=== PATIENT | male | born 1945 | race Caucasian/White ===

== ENCOUNTER 2016-07-15 07:32 | Observation (INO) ==
[2016-07-15] MEDS ORDERED: Ringers Solution, Lactated 1,000 ML IVC SCH ×2 (07:45→08:45)
[2016-07-15] MEDS ORDERED: Ringers Solution, Lactated 500 ML IVC SCH (08:15)
--- NOTE | 2016-07-15 08:47 | Anesthesia Evaluation PreOp ---
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 History: CVA (Right sided deficits) Other Medical History: Renal (Renal mass) Anesthesia History: No Prior Anesthetic Complications, Past Anesthesia (Hernia) Alcohol Use: none Drug use: none Medications and Allergies Allergies No Known Allergies Allergy (Unverified 07/10/16 14:07) - Meds/Allergy Pre-op Review Medications Reviewed: Yes Allergies Reviewed: Yes Beta Blockers on Current Med List: Yes If Beta Blockers taken, Date/Time (Last Dose taken): 21:00 07/14/2016 Anesthesia Results - Labs Laboratory Tests 07/10/16 07/10/16 07/10/16 14:07 14:07 14:07 WBC 6.8 Hgb 12.5 L Hct 39.3 Plt Count 229 INR 1.1 Sodium 141 Potassium 4.4 Chloride 106 Carbon Dioxide 25 BUN 18 Creatinine 0.91 - Imaging EKG: image reviewed (SR) Anesthesia Exam O2 Sat Height 1.88 m Height 1.88 m Height 1.88 m Weight 83.915 kg Weight 83.915 kg Weight 83.915 kg O2 Sat by Pulse Oximetry 99 Vital Signs Temp Pulse Resp BP Pulse Ox 98.6 F 75 18 121/65 99 07/15/16 08:07 07/15/16 08:07 07/15/16 08:07 07/15/16 08:07 07/15/16 08:07 Height: 6'2'' Weight: 185# NPO (# of Hours): > 8 hrs Pain Scale: 0 Pain Scale Used: Numeric (1 - 10) - HEENT Pupil (Motor): Pupils equal, EOMI Mallampati: II Teeth: Edentulous Oral Opening: Greater than 3 - TAPE RECORDER MECHANIC LOC: Oriented TAPE RECORDER MECHANIC Motor: Normal RUE, Normal LUE, Normal RLE, Normal LLE, Normal Face TAPE RECORDER MECHANIC Sensory: Normal: RUE, LUE, RLE, LLE, Face - Cardiac Rhythm: Regular Murmur: None JVD: No Carotid Bruit: No - Pulmonary Breath Sounds: bilateral Clear Respiratory Effort: Symmetrical Anesthesia Assess/Plan ASA Score: 3 Modified Bingham Scale for Level of Consciousness: Cooperative, oriented, and tranquil Anesthetic Plan: General Autologous Blood: Yes Monitoring Plan: Standard Monitors Recovery Plan: PACU
[2016-07-15] MEDS ORDERED: Heparin 1,000 UNITS/500 mL NS 500 ML ONE (09:50)
[2016-07-15] MEDS ORDERED: 0.9 % Sodium Chloride 1,000 ML ONE (10:00)
[2016-07-15] MEDS ORDERED: 0.9 % Sodium Chloride 500 ML ONE (10:07)
--- NOTE | 2016-07-15 11:49 | History & Physical Report ---
Date of Encounter: 07/15/16 Time of Encounter: 09:00 24 Hour HP Update - Instructions Instructions: If the History and Physical is less than 30 days old and was completed prior to A.M. admission and or procedure and has NOT been updated on calendar day of procedure please complete this update prior to performing procedure. - Update Patient reports changes in Medical Condition: No Changes in assessment/condition: No Changes in Medication: No Preop tests/diagnostics Reviewed: Yes Pre-Op MRSA Screen: Negative Surgery Remains Indicated: Yes Consent for Planned Operative Procedure(s) Verified: Yes - Pre-Operative Checklist Preoperative Checklist Indicated: Yes Prophylactic Antibiotic Ordered: Yes Is VTE Prophylaxis Indicated?: NO
--- NOTE | 2016-07-15 11:52 | IR Procedure Note ---
Date of procedure: 07/15/16 Consent Obtained: Written consent Timeout: Correct patient and procedure verified, Correct site verified, Time out performed, Skin prep completed Indications: left renal tumor Procedure Performed: cryoablation, temporary chest tube, hydrodissection Site/Technique: left kidney Results/Findings: adequate cryoablation Estimated blood loss (cc): 2 Complications: other Post Procedure Treatment Plan: Admited for observation. Patient had small pneumothorax treated with tube
[2016-07-15] MEDS ORDERED: *HR* Labetalol 100 MG/20 ML MDV IVP PRN (12:04)
[2016-07-15] MEDS ORDERED: Ondansetron 4 MG/2 ML VIAL IVP PRN ×2 (12:04→13:58)
[2016-07-15] MEDS ORDERED: *HR* HYDROmorphone (PF) 1 MG/ML SYRINGE IVP PRN (12:04)
--- NOTE | 2016-07-15 13:12 | Anesthesia Evaluation Post Op ---
Date of Encounter: 07/15/16 Time of Encounter: 12:55 - Vital Signs Vital Signs: Vital Signs/O2 Sat/Glucose, Most Current Temp Pulse Resp BP Pulse Ox 07/15/16 12:48 97.3 F L 68 16 152/76 96 07/15/16 12:30 97.1 F L 64 16 137/75 99 07/15/16 12:20 62 16 129/74 100 07/15/16 12:10 68 16 124/61 100 07/15/16 12:00 96.8 F L 66 16 140/74 100 07/15/16 11:38 73 13 98/55 98 07/15/16 11:25 57 14 75/40 99 07/15/16 11:10 52 13 102/45 99 07/15/16 10:53 83 13 107/54 98 07/15/16 10:43 70 86/47 98 - Lungs Lungs: Clear Ascult./Percussion - Airway Airway: Non-obstructed - Cardiovascular Regular Rate - Mental Status Mental Status: Alert & Oriented, Answers Appropriately - Pain Pain Scale: 0 - Nausea Vomiting Nausea Vomiting: Not Present - Hydration Hydration: Ice chips - Discharge PostOp Status: Transfer Patient to floor
[2016-07-15] MEDS ORDERED: *HR* Morphine 2 MG/ML SYRINGE IVP PRN (13:58)
[2016-07-15] MEDS ORDERED: Naloxone 0.4 MG/ML INJ IVP PRN (13:58)
[2016-07-15] MEDS ORDERED: *HR* HYDROcodone/Acet 5/325 mg TABLET PO PRN (13:58)
--- NOTE | 2016-07-15 14:21 | Internal Med History&Physical ---
<Neelam Robbins M - Last Filed: 07/15/16 19:58> Date of Encounter: 07/15/16 Time of Encounter: 14:14 Assessment and Plan (1) Renal mass, left Current visit: Yes Status: Acute MRI on 06/17/16 showed 3.4 x 3.1 x 2.9cm enhancing lesion consistent with Renal Cell Carcinoma. Patient opted for cryoablation of tumor. Plavix has been held for last 1 week. Cryoablation of tumor performed in interventional radiology this morning. Patient tolerated procedure well and is reporting minimal discomfort. Follow up with Dr. Jean Baptiste as an outpatient. Restart Plavix tomorrow. (2) Post procedure discomfort Current visit: Yes Status: Acute Patient reporting aching pain in left flank after procedure. [place] and Morphine PRN for pain zofran PRN for nausea Clear liquid diet, advance as tolerated. (3) Pneumothorax Current visit: Yes Status: Resolved IR reported small pneumothorax post-procedure, treated with temporary chest tube. Patient with occlusive dressing in place. Lungs are clear bilaterally to auscultation. Patient satting 96-100% on 2L NC and denies any shortness of breath. CXR this afternoon showed: No pneumothorax status post left renal mass ablation. Qualifiers: Pneumothorax type: postprocedural Qualified Code(s): J95.811 - Postprocedural pneumothorax; J95.81 - Postprocedural pneumothorax and air leak (4) Hypertension Current visit: Yes Status: Acute Continue home dose of Coreg and lisinipril. Qualifiers: Hypertension type: essential hypertension Qualified Code(s): I10 - Essential (primary) hypertension (5) DVT prophylaxis Current visit: Yes Status: Acute Ambulate with assistance SCDs Internal Medicine - H&P: HPI Chief complaint: Kidney mass Plans for Post Hospital Care: Transfer Manager Metrology Care History of present illness: Mr. Parnell is a 71 year old male with hypertension, hyperlipidemia, coronary artery disease, history of CVA with right-sided residual, left renal mass who is scheduled for a cryoablation of his left renal mass today in interventional radiology and is being admitted for postprocedure observation. MRI from June 17 showed a 3.4 x 3.1 x 2.9 cm enhancing lesion in the left kidney consistent with renal cell carcinoma. In consultation with Dr. Jean Baptiste as an outpatient, options were discussed and patient opted for cryoablation of the mass. Preop labs were taken on July 10 with no noted abnormalities. Patient was instructed to hold his Plavix 1 week prior to procedure. Patient had procedure this morning and I are, small pneumothorax was noted and was treated with a temporary chest tube. Chest x-ray this afternoon in follow-up showed no pneumothorax. Patient reports he is feeling cold after the procedure, but denies any headache, nausea, vomiting, chest pain, palpitations, shortness of breath. He reports some mild ache in his left flank and some mild lightheadedness. On exam, patient is alert and oriented, in no acute distress heart has regular rate and rhythm lungs are clear bilaterally to auscultation. Occlusive dressing on left flank is clean and dry with no noted drainage. Past Med Surg Social Fam HX - Past Medical History Medical history: CVA, hyperlipidemia, hypertension Psychiatric history: no psych history - Past Surgical History Surgical History: herniorrhaphy - Social History Smoking Status: Current every day smoker (50 pack year history) Packs per day: 0.5 Smokeless Tobacco Status: No Alcohol use: none Drug use: none - Family History Mother Living Status: Age at : 90 Father Living Status: Age at : 69 Hx Family Cardiac Disorders: Yes Internal Medicine - H&P: Meds Allergies No Known Allergies Allergy (Unverified 07/10/16 14:07) All Systems PM: A 10-system review of systems was performed and is negative for pertinent findings except as documented above in the HPI. - Constitutional Constitutional: no chills, no fever(s), no night sweats - EENT Eyes: no change in vision, no discharge, no pain, no photophobia Ears: no ear discharge, no ear pain, no tinnitus Nose, mouth and throat: no dysphagia, no nasal discharge, no neck pain, no sore throat - Cardiovascular Cardiovascular ROS IM: no chest pain, no diaphoresis, no dyspnea, no lightheadedness, no palpitations, no syncope - Respiratory Respiratory: no cough, no dyspnea, no wheezing, no excessive phlegm production - Gastrointestinal Gastrointestinal: no abdominal pain, no diarrhea, no hematemesis, no hematochezia, no melena, no nausea, no vomiting - Musculoskeletal Musculoskeletal ROS IM: back pain (Left flank ache), no numbness, no tingling - Integumentary Integumentary IM: no rash, no unusual bruising - Neurological Neurological ROS: focal weakness (right sided weakness, chronic after CVA in 2014), no confusion, no convulsions, no numbness, no tingling, no tremor(s) - Hematologic/Lymphatic Hematologic/Lymphatic: no easy bruising - Constitutional Vitals: Temp Pulse Resp BP Pulse Ox 97.3 F L 68 16 152/76 96 07/15/16 12:48 07/15/16 12:48 07/15/16 12:48 07/15/16 12:48 07/15/16 12:48 General appearance: Present: A&O X 3, no acute distress - Head Head exam: Present: atraumatic, normocephalic - Eye Eye exam: Present: PERRL, conjuntiva pink, sclera anicteric Pupils: Present: PERRL - Neck Neck exam general surgery: Present: supple, trachea midline. Absent: lymphadenopathy - Respiratory Respiratory exam: Present: CTAB. Absent: accessory muscle use, rales, rhonchi, wheezes - Cardiovascular Cardiovascular exam: Present: RRR, +S1, +S2. Absent: diastolic murmur, gallop, rubs, systolic murmur - GI/Abdominal GI/Abdominal exam: Present: normal bowel sounds, soft, no peritoneal signs. Absent: distended, tenderness - Extremities Exam Extremities exam: Present: warm, radial pulses palpable and symetrical. Absent : calf tenderness, cyanotic, pedal edema - Incison Incision: Present: clean and dry, intact Comments: Left flank with 2 clean, dry gauze pads covered with translucent occlusive dressing. - Neurological Exam Neurological exam: Present: CN II-XII intact, oriented X3, facial droop (Right sided facial droop noted, patient reports this is chronic since CVA in 2014). Absent: strengths equal and symetr throughout (right side slightly weaker than left, patient reports this is chronic since CVA in 2014), speech deficit - Skin Skin exam: Present: dry, intact Internal Med - H&P Results - Labs Labs: Pre-op labs taken 07/10/16: Hgb 12.5 Hct 39.3 WBC 6.8 Plt 229 NA 141 K 4.4 Cl 106 CO2 25 BUN 18 Cr 0.91 PT 11.6 INR 1.1 PTT 31.8 <Ducu,Marco A - Last Filed: 07/16/16 17:59> Internal Medicine - H&P: HPI History of present illness: Mr. Parnell is a 71 year old male All Systems PM: A 10-system review of systems was performed and is negative for pertinent findings except as documented above in the HPI. - Constitutional Vitals: Temp Pulse Resp BP Pulse Ox 97.7 F 78 15 130/56 90 L 07/16/16 15:18 07/16/16 15:18 07/16/16 15:18 07/16/16 15:18 07/16/16 15:18 Internal Med - H&P Results - Labs CBC & Chem 7: 07/16/16 05:55 07/16/16 05:55 Labs: Short CBC 07/16/16 Range/Units 05:55 WBC 10.8 D (4.3-11.1) K/mcL Hgb 12.0 L (12.9-16.9) g/dL Hct 36.4 L (37.5-50.1) % Plt Count 185 (140-400) K/mcL Neutrophils # 7.6 (1.6-8.9) K/mcL BMP 07/16/16 05:55 Sodium 142 Potassium 3.6 Chloride 111 H Carbon Dioxide 22 BUN 12 Creatinine 0.86 Glucose 119 H Calcium 8.6 - Impressions ITS Impressions CT Guided Tissue Ablation 07/15/16 00:00 IMPRESSION: Successful left renal cryoablation. A small pneumothorax was evacuated with a small bore chest tube with adequate resolution. The patient did not need a long-term chest tube. D/ / 07/15/2016 16:09:46 Kelle Frank MD / gahda Interpreting Provider: Kelle Frank MD Chest X-Ray 07/15/16 14:00 IMPRESSION: No pneumothorax status post left renal mass ablation. D/ / 07/15/2016 14:37:08 Dino Stallings MD / Katerine Nur Interpreting Provider: Dino Stallings MD - Attending Attestation I examined this patient and my medical decision-making was reviewed with the Advanced Practice Nurse. I agree with the documented findings, disposition and treatment plan as described except to the extent set forth below. The patient was admitted for observation post renal mass ablation. I have discussed case with the radiologist reported that there was a small left pneumothorax postprocedure. Currently the chest x-ray reveals no pneumothorax. The patient is in no acute distress. Lungs are clear, abdomen is soft. Plan: Admit for observation. Monitor respiratory status. Obtain CBC in the morning.
[2016-07-15] MEDS: Mirtazapine 15 MG TABLET PO SCH (20:39)
[2016-07-16 06:42] LABS: Basophils % 0.2 %; Eosinophils % 0.3 %; Hematocrit 36.4 % (37.5-50.1); Immature Granulocytes % 0.4 % (0-4); Lymphocytes # 1.5 K/mcL (0.6-4.6); Lymphocytes % 14.3 %; Mean Corpuscular Hemoglobin 29.9 pg (28.0-33.3); Mean Corpuscular Volume 90.8 fL (83.0-100.0); Mean Platelet Volume 11.4 fL (9.4-12.4); Monocytes # 1.5 K/mcL (0.0-1.3); Monocytes % 14.2 %; Neutrophils # 7.6 K/mcL (1.6-8.9); Platelet Count 185 K/mcL (140-400); Red Blood Count 4.01 M/mcL (4.19-5.50); Red Cell Distribution Width 14.2 % (11.5-14.5); Segmented Neutrophils % 70.6 %
[2016-07-16 06:59] LABS: BUN/Creatinine Ratio 14 (6-26); Blood Urea Nitrogen 12 mg/dL (8-26); Calcium 8.6 mg/dL (8.6-10.8); Carbon Dioxide 22 mEq/L (19-29); Chloride 111 mEq/L (98-109); Glucose 119 mg/dL (70-99); Osmolality,Calculated 295 (280-300); Potassium 3.6 mEq/L (3.5-4.5); Sodium 142 mEq/L (136-145); eGFR For African Americans > 60 (> 60); eGFR For Non-African Americans > 60 (> 60)
[2016-07-16] MEDS: Lisinopril 20 MG TABLET PO SCH (08:16)
--- NOTE | 2016-07-16 10:19 | Discharge Summary ---
<Jeronimo Villegas - Last Filed: 07/16/16 12:58> Date of Encounter: 07/16/16 Time of Encounter: 10:18 - Discharge Diagnosis (1) Hypertension Priority: Secondary Status: Acute Qualifiers: Hypertension type: essential hypertension Qualified Code(s): I10 - Essential (primary) hypertension (2) Post procedure discomfort Priority: Primary Status: Acute (3) Renal mass, left Priority: Primary Status: Acute (4) Pneumothorax Priority: Primary Status: Resolved Qualifiers: Pneumothorax type: postprocedural Qualified Code(s): J95.811 - Postprocedural pneumothorax; J95.81 - Postprocedural pneumothorax and air leak - Discharge Medications Home Medications: Acetaminophen [Tylenol] 325 mg PO Q6HR PRN 07/16/16 [History] Atorvastatin [Lipitor] 40 mg PO HS 07/16/16 [History] Carvedilol 12.5 mg PO DAILY 07/16/16 [History] Cholecalciferol (D-3) [Vitamin D] 2,000 unit PO DAILY 07/16/16 [History] Clopidogrel [Plavix] 75 mg PO DAILY 07/16/16 [History] Lisinopril [Zestril] 20 mg PO DAILY 07/16/16 [History] Mirtazapine [Remeron] 15 mg PO HS 07/16/16 [History] Allergies/Adverse Reactions: Allergies No Known Allergies Allergy (Unverified 07/10/16 14:07) Procedures/tests Complete & Pending: Procedures Performed prior 72 hours Category Date Time Status CT guided ablation [CT] Routine Cat Scan 07/15/16 Completed Date of admission: 07/16/16 07:41 Primary care physician: Stacie Streeter Consults: 07/15/16 14:22 Consult to Wood Strip Block Floor Installer [CONS] Routine Reason for SW Consult: Patient resides at [facility] and will need to return at discharge. Discharging clinician: Jeronimo Villegas Anticipated date of discharge: 07/16/16 - Patient Status Disposition: Home, Self-Care Condition: Good Functional capacity at discharge: independent ambulation Overall status at discharge: patient is progressing back to baseline - Discharge Instructions Follow Up With: Stacie Streeter [Primary Care Provider] - Additional Instructions: I recommend follow-up with her primary care physician the next 3-5 business days. Recommend taking her home medications as prescribed. If you have recurrence of chest pain, shortness of breath or any other concerning medical symptoms or signs he should be seen and evaluated at the emergency department. - Diet and Activity Activity: increase activity as tolerated Diet: advance to your usual diet Interval History: Mr. Parnell 71-year-old male with history of hypertension, hyperlipidemia, coronary artery disease, history of CVA with right-sided residual effects, left renal mass was admitted on 07/15/2016 after undergoing cryoablation of his left renal mass and developed a small pneumothorax that was treated with a temporary chest tube. Patient is admitted to the general medical floor, chest tube was removed , incision site had occlusive dressing in place. Patient's vitals are stable and his oxygen saturations were between 96 100% on 2 L nasal cannula. Repeat chest x-ray did not demonstrate a pneumothorax. Mr. Parnell remained stable overnight and was continued on his home dose of Coreg and lisinopril for his hypertension. He was seen and evaluated at patient's bedside on the morning of 07/16/2016 and deemed stable for discharge with close follow-up. Patient disposition and medications were discussed with the patient who agreed. He was restarted on his home medications recommended follow-up. Hospital course: Mr. Parnell 71-year-old male with history of hypertension, hyperlipidemia, coronary artery disease, history of CVA with right-sided residual effects, left renal mass was admitted on 07/15/2016 after undergoing cryoablation of his left renal mass and developed a small pneumothorax that was treated with a temporary chest tube. Patient is admitted to the general medical floor, chest tube was removed , incision site had occlusive dressing in place. Patient's vitals are stable and his oxygen saturations were between 96 100% on 2 L nasal cannula. Repeat chest x-ray did not demonstrate a pneumothorax. Mr. Parnell remained stable overnight and was continued on his home dose of Coreg and lisinopril for his hypertension. He was seen and evaluated at patient's bedside on the morning of 07/16/2016 and deemed stable for discharge with close follow-up. Patient disposition and medications were discussed with the patient who agreed. He was restarted on his home medications recommended follow-up. - Time Spent with Patient Total time spent providing and/or coordinating discharge services: - Constitutional Vitals: Temp Pulse Resp BP Pulse Ox 99.9 F H 90 16 126/68 90 L 07/16/16 07:03 07/16/16 07:03 07/16/16 07:03 07/16/16 07:03 07/16/16 08:20 General appearance: Present: A&O X 3, no acute distress - Head Head exam: Present: atraumatic, normocephalic - Eye Eye exam: Present: PERRL, conjuntiva pink, sclera anicteric Pupils: Present: PERRL - Neck Neck exam general surgery: Present: supple, trachea midline. Absent: lymphadenopathy - Respiratory Respiratory exam: Present: CTAB. Absent: accessory muscle use, rales, rhonchi, wheezes - Cardiovascular Cardiovascular exam: Present: RRR, +S1, +S2. Absent: diastolic murmur, gallop, rubs, systolic murmur - GI/Abdominal GI/Abdominal exam: Present: normal bowel sounds, soft, no peritoneal signs. Absent: distended, tenderness - Extremities Exam Extremities exam: Present: warm, radial pulses palpable and symetrical. Absent : calf tenderness, cyanotic, pedal edema - Back Exam Additional comments: incision sites in left medial chest are covered and without drainage or crepitus to palpation. - Neurological Exam Neurological exam: Present: alert, oriented X3, no focal deficits. Absent: pronater drift, facial droop, speech deficit - Psychiatric Psychiatric exam: Present: normal mood - VTE Documentation of Mechanical Device: Intermittent pneumatic compression device <Kory Foster - Last Filed: 07/16/16 15:52> - Discharge Diagnosis (1) Pneumothorax Priority: Primary Status: Resolved Qualifiers: Pneumothorax type: postprocedural Qualified Code(s): J95.811 - Postprocedural pneumothorax; J95.81 - Postprocedural pneumothorax and air leak (2) Renal mass, left Priority: Primary Status: Acute (3) Hypertension Status: Chronic Qualifiers: Hypertension type: essential hypertension Qualified Code(s): I10 - Essential (primary) hypertension (4) Status post cryoablation Priority: Primary Status: Acute Comments: S/P cryoablation of renal mass. (5) Tobacco abuse Priority: Secondary Status: Chronic Procedures/tests Complete & Pending: Procedures Performed prior 72 hours Category Date Time Status CT guided ablation [CT] Routine Cat Scan 03/13/17 Completed IR cryoablation perc renal [IR] Routine IR 07/15/16 09:00 Completed Date of admission: 07/16/16 07:41 Primary care physician: Stacie Streeter Consults: 07/15/16 14:22 Consult to Wood Strip Block Floor Installer [CONS] Routine Reason for SW Consult: Patient resides at [facility] and will need to return at discharge. 07/16/16 13:28 Consult to Occupational Therapy [CONS] Stat Comment: Evaluate, develop and implement POC Consult to Physical Therapy [CONS] Stat Comment: Evaluate, develop and implement POC Hospital course: Mr. Parnell is a 71 year old male - Time Spent with Patient Total time spent providing and/or coordinating discharge services: - Constitutional Vitals: Temp Pulse Resp BP Pulse Ox 97.7 F 78 15 130/56 90 L 07/16/16 15:18 07/16/16 15:18 07/16/16 15:18 07/16/16 15:18 07/16/16 15:18 - Attending Attestation I examined this patient and my medical decision-making was reviewed with the Resident Physician on 07/16/16. I agree with the documented findings, disposition and treatment plan as described except to the extent set forth below. Mr. Parnell was placed in observation yesterday following cryoablation of renal mass. He had developed L PTX and had temporary chest tube. PTX resolved on subsequent CXR. Today he feels well. He denies pain and is "not as cold" as yesterday. Had low grade temp this AM but has resolved. Exam Alert. Comfortable Heart reg Lungs clear Abd soft. Pt currently afebrile with good vitals and is stable for discharge Plan D/C today
[2016-07-16] MEDS ORDERED: *HR* Succinylcholine 200 MG/10 ML VIAL IVP ONE (10:57)
[2016-07-16] MEDS ORDERED: Lidocaine -MPF 2% 5 ML VIAL INFILT ONE (10:57)
[2016-07-16] MEDS ORDERED: *HR* Rocuronium Bromide 50 MG/5 ML VIAL IVC ONE (10:57)
[2016-07-16] MEDS ORDERED: *HR* Propofol 200 MG/20 ML VIAL IVP ONE (10:57)
[2016-07-16] MEDS ORDERED: *HR* Phenylephrine 10 MG/ML VIAL IVC ONE (10:57)
--- NOTE | 2016-07-16 15:54 | Physician Discharge Referral ---
ExtendedCare Referral Info Provider in Charge after Transfer: PCP Institutional Level of Care: Skilled - Diagnosis (1) Pneumothorax Priority: Primary Status: Resolved (2) Renal mass, left Priority: Primary Status: Acute (3) Hypertension Priority: Secondary Status: Chronic (4) Status post cryoablation Priority: Primary Status: Acute (5) Tobacco abuse Priority: Secondary Status: Chronic Expected Duration of Placement: Less than 30 days. Prognosis: Fair Aware of Diagnosis: Patient Aware of Prognosis: Patient - Transfer Medications Home Medications: Acetaminophen [Tylenol] 325 mg PO Q6HR PRN 07/16/16 [History] Atorvastatin [Lipitor] 40 mg PO HS 07/16/16 [History] Carvedilol 12.5 mg PO DAILY 07/16/16 [History] Cholecalciferol (D-3) [Vitamin D] 2,000 unit PO DAILY 07/16/16 [History] Clopidogrel [Plavix] 75 mg PO DAILY 07/16/16 [History] Lisinopril [Zestril] 20 mg PO DAILY 07/16/16 [History] Mirtazapine [Remeron] 15 mg PO HS 07/16/16 [History] Allergies/Adverse Reactions: Allergies No Known Allergies Allergy (Unverified 07/10/16 14:07) - Respiratory Orders Oxygen / L per min (Maintain saturation greater than 90%) Smoking Cessation: Smoking cessation has been advised. For more information, call the [place] Tobacco Quit Line at 4-803-EUCI-NOW. - Ancillary Orders May use pressure relief devices daily prn, May consult with Dentist, Data Warehousing Specialist, Zipper Trimmer Hand PRN - Advance Directives Code Status: Full Code - History and Physical History/Physical reviewed & approved w/add comments: Document up to date - Mobility Orders Ambulate - Rehabiliation Orders Rehab Potential: Fair Rehab Orders: Evaluation for Physical Therapy, Evaluation for Occupational Therapy - Treatments Skin tear care topically daily PRN per policy, May check for fecal impaction rectally daily PRN, Fleet enema rectally every other day PRN cleansing purposes - Diet Orders Cardiac CERTIFICATION: I certify that the transfer of the above named patient to an Extended Care Facility is necessary for the continuing treatment of the diagnosis listed. The above information is true and accurate reflection of patient's current condition. Confidential - Redisclosure prohibited without a patient's written consent.
[2016-07-16] MEDS: Mirtazapine 15 MG TABLET PO SCH (21:28)
[2016-07-17] MEDS ORDERED: Acetaminophen 325 MG TABLET PO ONE (08:04)
[2016-07-17] MEDS: Lisinopril 20 MG TABLET PO SCH (08:46)
[2016-07-17 10:17] LABS: Basophils % 0.3 %; Eosinophils % 0.3 %; Hematocrit 33.6 % (37.5-50.1); Hemoglobin 11.1 g/dL (12.9-16.9); Immature Granulocytes % 0.4 % (0-4); Lymphocytes # 1.7 K/mcL (0.6-4.6); Lymphocytes % 15.1 %; Mean Corpuscular Hemoglobin 29.5 pg (28.0-33.3); Mean Corpuscular Volume 89.4 fL (83.0-100.0); Monocytes % 17.3 %; Neutrophils # 7.5 K/mcL (1.6-8.9); Platelet Count 168 K/mcL (140-400); Red Blood Count 3.76 M/mcL (4.19-5.50); Red Cell Distribution Width 14.4 % (11.5-14.5); Segmented Neutrophils % 66.6 %
[2016-07-17] MEDS ORDERED: *HR* HYDROcodone/Acet 10/325 mg TABLET PO PRN (11:23)
--- NOTE | 2016-07-17 15:58 | Internal Med Progress Note ---
<Jeronimo Villegas - Last Filed: 07/17/16 15:54> Date of Encounter: 07/17/16 Time of Encounter: 09:15 - Assessment and plan (1) Pneumothorax Current Visit: Yes Status: Resolved Assessment and plan: Patient demonstrated pneumothorax after procedure on 07/15/2016. Temporary chest tube was placed with resolution of pneumothorax. Follow-up chest x-ray did not demonstrate any pneumothorax. Chest x-ray from 07/17/2016 was absent for any pneumothorax, pleural effusion or consolidation. There was some atelectasis bibasilar. Follow-up with primary care physician. Qualifiers: Pneumothorax type: postprocedural Qualified Code(s): J95.811 - Postprocedural pneumothorax; J95.81 - Postprocedural pneumothorax and air leak (2) Post procedure discomfort Current Visit: Yes Status: Acute Assessment and plan: Patient demonstrated acute onset left lower chest discomfort after undergoing cryoablation of left renal mass. Resolved after chest tube placement and decompression of pneumothorax. Patient continues to be asymptomatic. (3) Renal mass, left Current Visit: Yes Status: Acute Assessment and plan: Patient underwent scheduled cryo-ablation of left renal mass. Continue follow- up as scheduled. - Subjective Interval history: Mr. Parnell has been seen and evaluated patient bedside this morning. He is resting in bed and denies any discomforts, pains, shortness of breath, chest pains, fevers, chills, diaphoresis, abdominal pains or any other pains. He denies any drainage from his recent incision site. He denies any concerns at this time and is looking forward to going home. - Constitutional Vitals: Temp Pulse Resp BP Pulse Ox 98.3 F 74 16 94/59 90 L 07/17/16 11:32 07/17/16 11:32 07/17/16 11:32 07/17/16 11:32 07/17/16 11:32 General appearance: Present: A&O X 3, no acute distress - Head Head exam: Present: atraumatic, normocephalic - Eye Eye exam: Present: PERRL, conjuntiva pink, sclera anicteric Pupils: Present: PERRL - ENT ENT exam: Present: mucous membranes moist - Neck Neck exam general surgery: Present: supple, trachea midline. Absent: lymphadenopathy - Respiratory Respiratory exam: Present: CTAB. Absent: accessory muscle use, rales, rhonchi, wheezes - Cardiovascular Cardiovascular exam: Present: RRR, +S1, +S2. Absent: diastolic murmur, gallop, rubs, systolic murmur - GI/Abdominal GI/Abdominal exam: Present: normal bowel sounds, soft, no peritoneal signs. Absent: distended, tenderness - Extremities Exam Extremities exam: Present: warm, radial pulses palpable and symetrical. Absent : calf tenderness, cyanotic, pedal edema - Neurological Exam Neurological exam: Present: alert, oriented X3, no focal deficits. Absent: pronater drift, facial droop, speech deficit - Psychiatric Psychiatric exam: Present: flat affect Internal Medicine: Result - Labs CBC & Chem 7: 07/17/16 09:44 07/16/16 05:55 Labs: Short CBC 07/17/16 Range/Units 09:44 WBC 11.3 H (4.3-11.1) K/mcL Hgb 11.1 L (12.9-16.9) g/dL Hct 33.6 L (37.5-50.1) % Plt Count 168 (140-400) K/mcL Neutrophils # 7.5 (1.6-8.9) K/mcL - Impressions Impressions Chest X-Ray 07/17/16 09:18 IMPRESSION: 1. No pneumothorax, significant effusion, or acute consolidation. 2. 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 D/ / 07/17/2016 14:03:08 Clyde Mclaughlin MD / [facility] Interpreting Provider: Clyde Mclaughlin MD - VTE Documentation of Mechanical Device: Intermittent pneumatic compression device Consult Discharge Plan - Plan Additional Instructions: I recommend follow-up with her primary care physician the next 3-5 business days. Recommend taking her home medications as prescribed. If you have recurrence of chest pain, shortness of breath or any other concerning medical symptoms or signs he should be seen and evaluated at the emergency department. Referrals: Stacie Streeter [Primary Care Provider] - <Kory Foster - Last Filed: 07/17/16 19:04> - Assessment and plan (1) Pneumothorax Current Visit: Yes Status: Resolved Qualifiers: Pneumothorax type: postprocedural Qualified Code(s): J95.811 - Postprocedural pneumothorax; J95.81 - Postprocedural pneumothorax and air leak (2) Renal mass, left Current Visit: Yes Status: Acute (3) Hypertension Current Visit: Yes Status: Chronic Qualifiers: Hypertension type: essential hypertension Qualified Code(s): I10 - Essential (primary) hypertension (4) Status post cryoablation Current Visit: Yes Status: Acute (5) Tobacco abuse Current Visit: Yes Status: Chronic - Constitutional Vitals: Temp Pulse Resp BP Pulse Ox 98.4 F 71 16 132/67 89 L 07/17/16 16:29 07/17/16 16:29 07/17/16 16:29 07/17/16 16:29 07/17/16 16:29 Internal Medicine: Result - Labs CBC & Chem 7: 07/17/16 09:44 07/16/16 05:55 Labs: Short CBC 07/17/16 Range/Units 09:44 WBC 11.3 H (4.3-11.1) K/mcL Hgb 11.1 L (12.9-16.9) g/dL Hct 33.6 L (37.5-50.1) % Plt Count 168 (140-400) K/mcL Neutrophils # 7.5 (1.6-8.9) K/mcL - Impressions Impressions Chest X-Ray 07/17/16 09:18 IMPRESSION: 1. No pneumothorax, significant effusion, or acute consolidation. 2. 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 D/ / 07/17/2016 14:03:08 Clyde Mclaughlin MD / [facility] Interpreting Provider: Clyde Mclaughlin MD - Attending Attestation I examined this patient and my medical decision-making was reviewed with the Resident Physician on 07/17/16. I agree with the documented findings, disposition and treatment plan as described except to the extent set forth below. Mr. Parnell is currently in observation for PTX post cryoablation of renal mass. He is doing better but having low grade temp this AM Exam Alert. Comfortable Heart reg No wheeze CXR and labs reviewed I/P 1. PTX - resolved 2. Low grade temp -improved 3. HTN Awaiting precert.
[2016-07-17] MEDS: Mirtazapine 15 MG TABLET PO SCH (20:14)
[2016-07-18] MEDS: Lisinopril 20 MG TABLET PO SCH (08:22)
--- NOTE | 2016-07-18 18:17 | Internal Med Progress Note ---
Date of Encounter: 07/18/16 Time of Encounter: 17:30 - Assessment and plan (1) Pneumothorax Current Visit: Yes Status: Resolved Assessment and plan: Patient demonstrated pneumothorax after procedure on 07/15/2016. Temporary chest tube was placed with resolution of pneumothorax. Follow-up chest x-ray did not demonstrate any pneumothorax. Chest x-ray from 07/17/2016 was absent for any pneumothorax, pleural effusion or consolidation. There was some atelectasis bibasilar. 07/18 - Pt without symptoms at this time. Maintaining oxygenation. Awaiting precert for SNF. Qualifiers: Pneumothorax type: postprocedural Qualified Code(s): J95.811 - Postprocedural pneumothorax; J95.81 - Postprocedural pneumothorax and air leak (2) Renal mass, left Current Visit: Yes Status: Acute Assessment and plan: Patient underwent scheduled cryo-ablation of left renal mass. Continue follow- up as scheduled. (3) Hypertension Current Visit: Yes Status: Chronic Assessment and plan: Continue home meds. BP controlled. Qualifiers: Hypertension type: essential hypertension Qualified Code(s): I10 - Essential (primary) hypertension (4) Status post cryoablation Current Visit: Yes Status: Acute (5) Tobacco abuse Current Visit: Yes Status: Chronic Assessment and plan: Cessation counselling. - Subjective Interval history: Mr. Parnell is currently in observation due to postprocedural pneumothorax. Mr. Parnell feels OK. He has no new complaints. Pain is controlled. He continues to await precert from insurance for discharge back to SNF. - Constitutional Vitals: Temp Pulse Resp BP Pulse Ox 98.4 F 80 15 105/56 90 L 07/18/16 17:00 07/18/16 17:00 07/18/16 17:00 07/18/16 17:00 07/18/16 17:00 General appearance: Present: A&O X 3, answers questions appropriately - Head Head exam: Present: normocephalic - Eye Eye exam: Present: EOMI, conjuntiva pink - ENT ENT exam: Present: mucous membranes dry - Respiratory Respiratory exam: Present: decreased breath sounds, CTAB - Cardiovascular Cardiovascular exam: Present: RRR. Absent: tachycardia - GI/Abdominal GI/Abdominal exam: Present: soft. Absent: mass, tenderness - Neurological Exam Neurological exam: Present: alert, oriented X3, no focal deficits - Psychiatric Psychiatric exam: Present: normal affect, normal mood Internal Medicine: Result - Labs CBC & Chem 7: 07/17/16 09:44 07/16/16 05:55 - VTE Documentation of Mechanical Device: Intermittent pneumatic compression device Consult Discharge Plan - Plan Additional Instructions: I recommend follow-up with her primary care physician the next 3-5 business days. Recommend taking her home medications as prescribed. If you have recurrence of chest pain, shortness of breath or any other concerning medical symptoms or signs he should be seen and evaluated at the emergency department. Referrals: Stacie Streeter [Primary Care Provider] -
[2016-07-18] MEDS: Mirtazapine 15 MG TABLET PO SCH (20:19)
[2016-07-19] MEDS: Acetaminophen 325 MG TABLET PO PRN (07:54)
[2016-07-19] MEDS: Lisinopril 20 MG TABLET PO SCH (07:54)
--- NOTE | 2016-07-19 19:08 | Internal Med Progress Note ---
Date of Encounter: 07/19/16 Time of Encounter: 14:00 - Assessment and plan (1) Pneumothorax Current Visit: Yes Status: Resolved Assessment and plan: Patient demonstrated pneumothorax after procedure on 07/15/2016. Temporary chest tube was placed with resolution of pneumothorax. Follow-up chest x-ray did not demonstrate any pneumothorax. Chest x-ray from 07/17/2016 was absent for any pneumothorax, pleural effusion or consolidation. There was some atelectasis bibasilar. 07/18 - Pt without symptoms at this time. Maintaining oxygenation. 07/19 - no issues. Awaiting precert for SNF. Qualifiers: Pneumothorax type: postprocedural Qualified Code(s): J95.811 - Postprocedural pneumothorax; J95.81 - Postprocedural pneumothorax and air leak (2) Renal mass, left Current Visit: Yes Status: Acute Assessment and plan: Patient underwent scheduled cryo-ablation of left renal mass. Continue follow- up as scheduled. (3) Hypertension Current Visit: Yes Status: Chronic Assessment and plan: Continue home meds. BP controlled. Qualifiers: Hypertension type: essential hypertension Qualified Code(s): I10 - Essential (primary) hypertension (4) Status post cryoablation Current Visit: Yes Status: Acute (5) Tobacco abuse Current Visit: Yes Status: Chronic Assessment and plan: Cessation counselling. - Subjective Interval history: Mr. Parnell is currently in observation due to postprocedural pneumothorax. Mr. Parnell has no new issues. Still awaiting precert for SNF. - Constitutional Vitals: Temp Pulse Resp BP Pulse Ox 98.4 F 70 15 115/65 93 L 07/19/16 15:05 07/19/16 15:05 07/19/16 15:05 07/19/16 15:05 07/19/16 15:05 General appearance: Present: A&O X 3, answers questions appropriately - Head Head exam: Present: normocephalic - Eye Eye exam: Present: EOMI, conjuntiva pink - ENT ENT exam: Present: mucous membranes moist - Respiratory Respiratory exam: Present: decreased breath sounds, CTAB - Cardiovascular Cardiovascular exam: Present: RRR. Absent: tachycardia - GI/Abdominal GI/Abdominal exam: Present: soft. Absent: tenderness - Extremities Exam Extremities exam: Present: warm. Absent: pedal edema - Neurological Exam Neurological exam: Present: alert, oriented X3 Internal Medicine: Result - Labs CBC & Chem 7: 07/17/16 09:44 07/16/16 05:55 - VTE Documentation of Mechanical Device: Intermittent pneumatic compression device Consult Discharge Plan - Plan Additional Instructions: I recommend follow-up with her primary care physician the next 3-5 business days. Recommend taking her home medications as prescribed. If you have recurrence of chest pain, shortness of breath or any other concerning medical symptoms or signs he should be seen and evaluated at the emergency department. Referrals: Stacie Streeter [Primary Care Provider] -
[2016-07-19] MEDS: Mirtazapine 15 MG TABLET PO SCH (20:01)
[2016-07-20] MEDS: Acetaminophen 325 MG TABLET PO PRN (00:24)
[2016-07-20] MEDS: Lisinopril 20 MG TABLET PO SCH (08:19)
--- NOTE | 2016-07-20 10:27 | Internal Med Progress Note ---
Date of Encounter: 07/20/16 Time of Encounter: 09:00 - Assessment and plan (1) Pneumothorax Current Visit: Yes Status: Resolved Assessment and plan: Patient demonstrated pneumothorax after procedure on 07/15/2016. Temporary chest tube was placed with resolution of pneumothorax. Follow-up chest x-ray did not demonstrate any pneumothorax. Chest x-ray from 07/17/2016 was absent for any pneumothorax, pleural effusion or consolidation. There was some atelectasis bibasilar. 07/18 - Pt without symptoms at this time. Maintaining oxygenation. 07/19 - no issues. 07/20 - no issues Awaiting precert for SNF. Qualifiers: Pneumothorax type: postprocedural Qualified Code(s): J95.811 - Postprocedural pneumothorax; J95.81 - Postprocedural pneumothorax and air leak (2) Renal mass, left Current Visit: Yes Status: Acute Assessment and plan: Patient underwent scheduled cryo-ablation of left renal mass. Continue follow- up as scheduled. He is having no acute symptoms at this time. (3) Hypertension Current Visit: Yes Status: Chronic Assessment and plan: Continue home meds. BP controlled. Qualifiers: Hypertension type: essential hypertension Qualified Code(s): I10 - Essential (primary) hypertension (4) Status post cryoablation Current Visit: Yes Status: Acute (5) Tobacco abuse Current Visit: Yes Status: Chronic Assessment and plan: Cessation counselling. - Subjective Interval history: Mr. Parnell is currently in observation due to postprocedural pneumothorax. Mr. Parnell is eating breakfast. He denies new issues. Slept OK. Precert did not come through on Friday therefore he is still here. Pain is not an issue. No further fevers. - Constitutional Vitals: Temp Pulse Resp BP Pulse Ox 97.8 F 71 14 143/62 91 L 07/20/16 07:01 07/20/16 07:01 07/20/16 07:01 07/20/16 07:01 07/20/16 07:01 General appearance: Present: A&O X 3, answers questions appropriately - Head Head exam: Present: atraumatic, normocephalic - Eye Eye exam: Present: EOMI, conjuntiva pink - ENT ENT exam: Present: mucous membranes moist - Respiratory Respiratory exam: Present: decreased breath sounds, CTAB - Cardiovascular Cardiovascular exam: Present: RRR. Absent: tachycardia - GI/Abdominal GI/Abdominal exam: Present: soft. Absent: mass, tenderness - Extremities Exam Extremities exam: Present: warm. Absent: pedal edema - Neurological Exam Neurological exam: Present: alert, oriented X3, no focal deficits - Psychiatric Psychiatric exam: Present: normal affect, normal mood - Skin Skin exam: Present: warm. Absent: rash Internal Medicine: Result - Labs CBC & Chem 7: 07/17/16 09:44 07/16/16 05:55 - VTE Documentation of Mechanical Device: Intermittent pneumatic compression device Consult Discharge Plan - Plan Additional Instructions: I recommend follow-up with her primary care physician the next 3-5 business days. Recommend taking her home medications as prescribed. If you have recurrence of chest pain, shortness of breath or any other concerning medical symptoms or signs he should be seen and evaluated at the emergency department. Referrals: Stacie Streeter [Primary Care Provider] -
[2016-07-20] MEDS: Mirtazapine 15 MG TABLET PO SCH (20:23)
[2016-07-21 07:28] LABS: Hematocrit 33.1 % (37.5-50.1); Hemoglobin 10.9 g/dL (12.9-16.9); Mean Corpuscular HGB Conc 32.9 g/dL (31.6-35.5); Mean Corpuscular Hemoglobin 29.5 pg (28.0-33.3); Mean Corpuscular Volume 89.5 fL (83.0-100.0); Platelet Count 233 K/mcL (140-400); Red Cell Distribution Width 13.6 % (11.5-14.5)
[2016-07-21 07:41] LABS: BUN/Creatinine Ratio 18 (6-26); Blood Urea Nitrogen 15 mg/dL (8-26); Calcium 8.7 mg/dL (8.6-10.8); Carbon Dioxide 24 mEq/L (19-29); Chloride 107 mEq/L (98-109); Glucose 103 mg/dL (70-99); Magnesium 1.6 mg/dL (1.6-2.6); Osmolality,Calculated 289 (280-300); Potassium 3.9 mEq/L (3.5-4.5); Sodium 139 mEq/L (136-145); eGFR For African Americans > 60 (> 60); eGFR For Non-African Americans > 60 (> 60)
[2016-07-21] MEDS: Lisinopril 20 MG TABLET PO SCH (08:57)
--- NOTE | 2016-07-21 12:25 | Internal Med Progress Note ---
Date of Encounter: 07/21/16 Time of Encounter: 07:45 - Assessment and plan (1) Pneumothorax Current Visit: Yes Status: Resolved Assessment and plan: Patient demonstrated pneumothorax after procedure on 07/15/2016. Temporary chest tube was placed with resolution of pneumothorax. Follow-up chest x-ray did not demonstrate any pneumothorax. Chest x-ray from 07/17/2016 was absent for any pneumothorax, pleural effusion or consolidation. There was some atelectasis bibasilar. 07/18 - Pt without symptoms at this time. Maintaining oxygenation. 07/19 - no issues. 07/20 - no issues 07/21 - no issues Awaiting precert for SNF. Qualifiers: Pneumothorax type: postprocedural Qualified Code(s): J95.811 - Postprocedural pneumothorax; J95.81 - Postprocedural pneumothorax and air leak (2) Renal mass, left Current Visit: Yes Status: Acute Assessment and plan: Patient underwent scheduled cryo-ablation of left renal mass. Continue follow- up as scheduled. He is having no acute symptoms at this time. (3) Hypertension Current Visit: Yes Status: Chronic Assessment and plan: Continue home meds. BP controlled. Qualifiers: Hypertension type: essential hypertension Qualified Code(s): I10 - Essential (primary) hypertension (4) Status post cryoablation Current Visit: Yes Status: Acute (5) Tobacco abuse Current Visit: Yes Status: Chronic Assessment and plan: Cessation counselling. - Subjective Interval history: Mr. Parnell is currently in observation due to postprocedural pneumothorax. Mr. Parnell is resting comfortably. No new issues overnight. Hopeful that he will be able to go tomorrow. - Constitutional Vitals: Temp Pulse Resp BP Pulse Ox 98.6 F 71 14 134/70 91 L 07/21/16 12:03 07/21/16 12:03 07/21/16 12:03 07/21/16 12:03 07/21/16 12:03 General appearance: Present: A&O X 3, answers questions appropriately - Head Head exam: Present: normocephalic - Eye Eye exam: Present: EOMI, conjuntiva pink - ENT ENT exam: Present: mucous membranes dry - Respiratory Respiratory exam: Present: CTAB. Absent: rhonchi, wheezes - Cardiovascular Cardiovascular exam: Present: RRR. Absent: tachycardia - GI/Abdominal GI/Abdominal exam: Present: soft. Absent: tenderness - Extremities Exam Extremities exam: Present: warm. Absent: pedal edema - Neurological Exam Neurological exam: Present: alert, oriented X3, no focal deficits - Psychiatric Psychiatric exam: Present: normal affect, normal mood - Skin Skin exam: Present: dry, warm. Absent: rash Internal Medicine: Result - Labs CBC & Chem 7: 07/21/16 06:58 07/21/16 06:58 Labs: Short CBC 07/21/16 Range/Units 06:58 WBC 9.6 (4.3-11.1) K/mcL Hgb 10.9 L (12.9-16.9) g/dL Hct 33.1 L (37.5-50.1) % Plt Count 233 (140-400) K/mcL BMP 07/21/16 06:58 Sodium 139 Potassium 3.9 Chloride 107 Carbon Dioxide 24 BUN 15 Creatinine 0.85 Glucose 103 H Calcium 8.7 - VTE Documentation of Mechanical Device: Intermittent pneumatic compression device Consult Discharge Plan - Plan Additional Instructions: I recommend follow-up with her primary care physician the next 3-5 business days. Recommend taking her home medications as prescribed. If you have recurrence of chest pain, shortness of breath or any other concerning medical symptoms or signs he should be seen and evaluated at the emergency department. Referrals: Stacie Streeter [Primary Care Provider] - (patient is goimg to [facility])
[2016-07-21] MEDS: Mirtazapine 15 MG TABLET PO SCH (21:33)
[2016-07-22] MEDS: Lisinopril 20 MG TABLET PO SCH (09:02)
--- NOTE | 2016-07-22 14:57 | Internal Med Progress Note ---
Date of Encounter: 07/22/16 Time of Encounter: 08:30 - Assessment and plan (1) Pneumothorax Current Visit: Yes Status: Resolved Assessment and plan: Patient demonstrated pneumothorax after procedure on 07/15/2016. Temporary chest tube was placed with resolution of pneumothorax. Follow-up chest x-ray did not demonstrate any pneumothorax. Chest x-ray from 07/17/2016 was absent for any pneumothorax, pleural effusion or consolidation. There was some atelectasis bibasilar. 07/18 - Pt without symptoms at this time. Maintaining oxygenation. 07/19 - no issues. 07/20 - no issues 07/21 - no issues 07/22 - continued no issues. Awaiting precert for SNF. He has had a prolonged stay while awaiting return to SNF. He has been seen by PT and OT both having recommended SNF placement. Multiple phone calls have been made regarding this situation. Insurance has requested more therapy notes. Qualifiers: Pneumothorax type: postprocedural Qualified Code(s): J95.811 - Postprocedural pneumothorax; J95.81 - Postprocedural pneumothorax and air leak (2) Renal mass, left Current Visit: Yes Status: Acute Assessment and plan: Patient underwent scheduled cryo-ablation of left renal mass. Continue follow- up as scheduled. He is having no acute symptoms at this time. (3) Hypertension Current Visit: Yes Status: Chronic Assessment and plan: Continue home meds. BP controlled. Qualifiers: Hypertension type: essential hypertension Qualified Code(s): I10 - Essential (primary) hypertension (4) Tobacco abuse Current Visit: Yes Status: Chronic Assessment and plan: Cessation counselling. (5) Status post cryoablation Current Visit: Yes Status: Acute - Subjective Interval history: Mr. Parnell is currently in observation due to postprocedural pneumothorax. Mr. Parnell is resting comfortably. No new issues overnight. Still awaiting precert for return to SNF. - Constitutional Vitals: Temp Pulse Resp BP Pulse Ox 98.1 F 71 18 106/57 91 L 07/22/16 11:31 07/22/16 11:31 07/22/16 11:31 07/22/16 11:31 07/22/16 11:31 General appearance: Present: A&O X 3, answers questions appropriately - Head Head exam: Present: normocephalic - Eye Eye exam: Present: conjuntiva pink - ENT ENT exam: Present: mucous membranes moist - Respiratory Respiratory exam: Present: decreased breath sounds, CTAB - Cardiovascular Cardiovascular exam: Present: RRR. Absent: tachycardia - GI/Abdominal GI/Abdominal exam: Present: soft. Absent: tenderness - Extremities Exam Extremities exam: Present: warm. Absent: pedal edema - Neurological Exam Neurological exam: Present: alert, oriented X3 - Skin Skin exam: Present: warm. Absent: rash Internal Medicine: Result - Labs CBC & Chem 7: 07/21/16 06:58 07/21/16 06:58 - VTE Documentation of Mechanical Device: Intermittent pneumatic compression device Consult Discharge Plan - Plan Additional Instructions: I recommend follow-up with her primary care physician the next 3-5 business days. Recommend taking her home medications as prescribed. If you have recurrence of chest pain, shortness of breath or any other concerning medical symptoms or signs he should be seen and evaluated at the emergency department. Referrals: Stacie Streeter [Primary Care Provider] - (patient is goimg to [facility], [facility])
[2016-07-22 15:37] VITALS: BP 116/66
== END 2016-07-22 17:40 ==
LOC: INTRAD 07:32 → 2ANU 07:32 → SUATTDRO 07-16 07:41
PROVIDERS: ADMIT Nurse Practitioner Family; ATTEND Internal Medicine